=== PATIENT | female | born 1940 | race Caucasian/White ===

== ENCOUNTER 2019-08-05 21:52 | Inpatient (IN) | payer MEDICARE ==
[~2019-08-05] VITALS: Ht 157.5 cm; Wt 80.7 kg
[~2019-08-05 21:52] MED LIST: AMLO10TA4 PO; FURO-151; INSULIN; LOSA50TA41 PO; METO-385 PO; OMEP40CA34; PRAV40TA58
[2019-08-05] MEDS ORDERED: SODIUM CHLORIDE 0.9% 1,000 ML IV ONE (22:31)
[2019-08-05 23:14] LABS: BG BASE EXCESS -3.7 mmol/L (-2.0-2.0); BG CARBOXYHEMOGLOBIN 0.5 % (0.5-1.5); BG DEOXYHEMOGLOBIN 10.1 % (0.0-5.0); BG FRACTION INSPIRED OXYGEN 21; BG HCO3 ACT 21.3 mmol/L (22.0-26.0); BG METHEMOGLOBIN 0.3 % (0.0-1.5); BG OXYGEN SATURATION 89.8 % (92.0-98.5); BG OXYHEMOGLOBIN 89.1 % (94.0-97.0); BG PCO2 38.7 mmHg (35.0-45.0); BG PH 7.359 (7.350-7.450); BG PO2 59.2 mmHg (75.0-100.0); BG SAMPLE SITE LEFT BRACHIAL; BG TOTAL HEMOGLOBIN 12.7 g/dL (12.0-18.0); BG VENT MODE ROOM AIR
[2019-08-06 00:08] LABS: HEMATOCRIT. 36.4 % (36.0-48.0); HEMOGLOBIN. 11.9 g/dL (12.0-16.0); MEAN CORPUSCULAR HEMOGLOBIN 29.2 pg (28.0-32.0); MEAN CORPUSCULAR VOLUME 89.2 fL (81.0-99.0); MEAN PLATELET VOLUME 7.3 fl (7.4-10.4); PLATELET 165 x1000/uL (130-400); RED BLOOD CELL COUNT 4.08 mill/uL (4.2-5.4); RED CELL DISTRIBUTION WIDTH 14.8 % (11.6-14.6)
[2019-08-06 00:15] LABS: CHLORIDE 100 mEq/L (98-107)
[2019-08-06 00:21] LABS: INR 3.3; PROTHROMBIN TIME 31.7 sec (9.6-11.0)
[2019-08-06 00:27] LABS: BETA HYDROXYBUTYRATE 0.8 mMol/L (0.0-0.3)
[2019-08-06] MEDS ORDERED: FUROSEMIDE 20MG/2ML VIAL IVP ONE (00:45)
[2019-08-06] MEDS ORDERED: CEFTRIAXONE 1 G PREMIX 50 ML IV ONE (01:45)
[2019-08-06] MEDS ORDERED: CEFTRIAXONE 1,000 MG in DEXTROSE 5% WATER 50 ML IV SCH (02:15)
[2019-08-06 02:22] LABS: CLARITY URINE CLEAR (CLEAR); COLOR URINE YELLOW (YELLOW); KETONES URINE NEGATIVE (NEGATIVE); LEUKOCYTE ESTERASE URINE NEGATIVE (NEGATIVE); NITRITE URINE NEGATIVE (NEGATIVE); OCCULT BLOOD URINE 1+ (NEGATIVE); PROTEIN URINE 1+ (NEGATIVE); SPECIFIC GRAVITY URINE 1.014 (1.005-1.030); UROBILINOGEN URINE 0.2 E.U./dL (0.2-1.0)
[2019-08-06] MEDS ORDERED: INSULIN REGULAR (HUMULIN R) UD 100 UNITS/ML SYR IV ONE (03:15)
[2019-08-06] MEDS ORDERED: INSULIN REGULAR (HUMULIN R) 300UNITS/3ML SUBCUT SCH (03:30)
[2019-08-06] MEDS ORDERED: INSULIN REGULAR (HUMULIN R) 300UNITS/3ML IV SCH (03:30)
[2019-08-06] MEDS ORDERED: INSULIN LISPRO 100 UNITS/ML SUBCUT SCH ×2 (04:45→06:15)
[2019-08-06 07:14] LABS: PLATELET ESTIMATE NORMAL
[2019-08-06 08:20] VITALS: BP 142/62
[2019-08-06 08:35] VITALS: BP 142/62
[2019-08-06] MEDS ORDERED: ACETAMINOPHEN 325MG TABLET PO PRN (09:00)
[2019-08-06] MEDS ORDERED: ONDANSETRON HCL 4MG/2ML INJ IV PRN (09:00)
[2019-08-06] MEDS ORDERED: DEXTROSE 50% WATER 50ML SYRINGE IV PRN (09:00)
[2019-08-06] MEDS ORDERED: ATOR20TA65 MT (09:59)
[2019-08-06] MEDS ORDERED: WARF-53 MT (09:59)
[2019-08-06] MEDS ORDERED: METF-415 MT (09:59)
[2019-08-06] MEDS ORDERED: CIPR500S3 * (10:03)
[2019-08-06] MEDS ORDERED: POTA8CAP20 MT (10:03)
[2019-08-06] MEDS: SODIUM CHLORIDE 0.9% 1,000 ML IV SCH ×2 (11:36→22:47)
[2019-08-06 11:56] VITALS: BP 129/61
[2019-08-06] MEDS ORDERED: VANCOMYCIN 1 G PREMIX 200 ML IV SCH (12:00)
[2019-08-06] MEDS: BLOOD SUGAR DIAGNOSTIC STRIP TEST SCH ×3 (12:09→21:09)
[2019-08-06] MEDS: INSULIN LISPRO 100 UNITS/ML SUBCUT SCH ×3 (12:29→21:16)
[2019-08-06] MEDS: INSULIN GLARGINE UD 100 UNITS/ML SYR SUBCUT SCH ×2 (12:30→21:17)
[2019-08-06] MEDS: PIPERACILLIN/TAZOBACTAM 2.25 G in DEXTROSE 5% WATER 50 ML IV SCH ×2 (12:30→17:33)
[2019-08-06] MEDS ORDERED: HUM100IN SQ (12:42)
[2019-08-06 16:00] VITALS: BP 133/43
[2019-08-06 20:00] VITALS: BP 139/76
[2019-08-07] VITALS: BP 132/67
[2019-08-07] MEDS: PIPERACILLIN/TAZOBACTAM 2.25 G in DEXTROSE 5% WATER 50 ML IV SCH ×4 (00:54→21:20)
[2019-08-07 04:00] VITALS: BP 127/54
[2019-08-07 06:02] LABS: INR 2.4; PROTHROMBIN TIME 24.3 sec (9.6-11.0)
[2019-08-07 06:51] LABS: BASOPHILS % 0.2 % (0.0-2.0); EOSINOPHILS % 0.9 % (0.0-5.0); HEMATOCRIT. 36.5 % (36.0-48.0); HEMOGLOBIN. 12.3 g/dL (12.0-16.0); LYMPHOCYTES % 16.7 % (20.0-50.0); MEAN CORPUSCULAR HEMOGLOBIN 29.7 pg (28.0-32.0); MEAN CORPUSCULAR VOLUME 88.2 fL (81.0-99.0); MEAN PLATELET VOLUME 7.5 fl (7.4-10.4); MONOCYTES % 6.7 % (2.0-8.0); NEUTROPHILS % 75.5 % (40.0-76.0); PLATELET 168 x1000/uL (130-400); RED BLOOD CELL COUNT 4.14 mill/uL (4.2-5.4); RED CELL DISTRIBUTION WIDTH 14.3 % (11.6-14.6)
[2019-08-07] MEDS: BLOOD SUGAR DIAGNOSTIC STRIP TEST SCH ×4 (06:55→21:10)
[2019-08-07 08:00] VITALS: BP 138/74
[2019-08-07] MEDS: INSULIN LISPRO 100 UNITS/ML SUBCUT SCH ×4 (08:38→21:18)
[2019-08-07] MEDS ORDERED: VANCOMYCIN 1 G PREMIX 200 ML IV SCH (11:00)
[2019-08-07] MEDS ORDERED: INSULIN GLARGINE UD 100 UNITS/ML SYR SUBCUT SCH (11:00)
[2019-08-07 12:21] VITALS: BP 147/67
[2019-08-07 16:16] VITALS: BP 140/60
[2019-08-07] MEDS ORDERED: INSULIN LISPRO 100 UNITS/ML SUBCUT SCH (17:20)
[2019-08-07] MEDS ORDERED: WARFARIN SODIUM 2.5MG TABLET PO SCH (18:00)
[2019-08-07 20:05] VITALS: BP 142/69
[2019-08-07] MEDS: INSULIN GLARGINE UD 100 UNITS/ML SYR SUBCUT SCH (21:17)
[2019-08-07] MEDS: SODIUM CHLORIDE 0.9% 1,000 ML IV SCH (22:20)
[2019-08-08 00:17] VITALS: BP 138/72
[2019-08-08] MEDS: SODIUM CHLORIDE 0.9% 1,000 ML IV SCH ×2 (00:22→12:59)
[2019-08-08 04:00] VITALS: BP 155/70
[2019-08-08] MEDS: PIPERACILLIN/TAZOBACTAM 2.25 G in DEXTROSE 5% WATER 50 ML IV SCH ×2 (07:01→12:59)
[2019-08-08] MEDS: INSULIN LISPRO 100 UNITS/ML SUBCUT SCH ×4 (07:20→13:00)
[2019-08-08 07:37] LABS: BASOPHILS % 0.5 % (0.0-2.0); EOSINOPHILS % 1.8 % (0.0-5.0); HEMATOCRIT. 37.9 % (36.0-48.0); HEMOGLOBIN. 12.8 g/dL (12.0-16.0); LYMPHOCYTES % 18.1 % (20.0-50.0); MEAN CORPUSCULAR HEMOGLOBIN 29.5 pg (28.0-32.0); MEAN CORPUSCULAR VOLUME 87.6 fL (81.0-99.0); MONOCYTES % 9.8 % (2.0-8.0); NEUTROPHILS % 69.8 % (40.0-76.0); PLATELET 183 x1000/uL (130-400); RED BLOOD CELL COUNT 4.33 mill/uL (4.2-5.4); RED CELL DISTRIBUTION WIDTH 14.1 % (11.6-14.6)
[2019-08-08] MEDS ORDERED: GLIPIZIDE XL 2.5MG TABLET PO SCH (07:50)
[2019-08-08 07:55] LABS: PHOSPHORUS 3.7 mg/dL (2.5-4.9)
[2019-08-08 08:00] VITALS: BP 127/60
[2019-08-08] MEDS: BLOOD SUGAR DIAGNOSTIC STRIP TEST SCH ×2 (08:03→12:41)
[2019-08-08] MEDS: INSULIN GLARGINE UD 100 UNITS/ML SYR SUBCUT SCH (10:00)
[2019-08-08 12:00] VITALS: BP 147/75
[2019-08-08 13:39] LABS: PROTHROMBIN TIME 19.7 sec (9.6-11.0)
[2019-08-08] MEDS ORDERED: NITR-87 MT (15:42)
[2019-08-08 16:00] VITALS: BP 122/74
[2019-08-08 16:42] VITALS: BP 141/76
[2019-08-08] MEDS ORDERED: WARFARIN SODIUM 5MG TABLET PO SCH (18:00)
== END 2019-08-08 17:50 | disposition home or self-care (01) | DRG 871 ==
LOC: ER 21:52 → 6WST 08-06 00:55 → EDBEDREQTM 08-06 00:56 → EDBEDREQ 08-06 00:56 → ENRESERV 08-06 01:30
PROVIDERS: ADMIT Internal Medicine; ATTEND Internal Medicine
DX: A41.9 Sepsis, unspecified organism (principal); E43 Unspecified severe protein-calorie malnutrition; J96.00 Acute respiratory failure, unspecified whether with hypoxia or hypercapnia; N17.0 Acute kidney failure with tubular necrosis; E87.1 Hypo-osmolality and hyponatremia; N18.5 Chronic kidney disease, stage 5; I13.2 Hypertensive heart and chronic kidney disease with heart failure and with stage 5 chronic kidney disease, or end stage renal disease; D68.9 Coagulation defect, unspecified; E87.8 Other disorders of electrolyte and fluid balance, not elsewhere classified; I50.9 Heart failure, unspecified; E78.5 Hyperlipidemia, unspecified; Z90.710 Acquired absence of both cervix and uterus; E66.9 Obesity, unspecified; I48.91 Unspecified atrial fibrillation; Z79.4 Long term (current) use of insulin; G90.8 Other disorders of autonomic nervous system; E78.00 Pure hypercholesterolemia, unspecified; Z87.891 Personal history of nicotine dependence; Z88.2 Allergy status to sulfonamides; Z71.3 Dietary counseling and surveillance; E11.22 Type 2 diabetes mellitus with diabetic chronic kidney disease; E11.319 Type 2 diabetes mellitus with unspecified diabetic retinopathy without macular edema; Z68.32 Body mass index [BMI] 32.0-32.9, adult
CPT/HCPCS: 36415; 36600; 71045; 74176; 76770; 80048; 80202; 81003; 82010; 82375; 82570; 82805; 82962; 83036; 83605; 83735; 83880; 84100; 84145; 84300; 84484; 87804; 93005; 93306; 93970; 99285; J0696; J1815; J2543; J3370; J7030; J7060; A4315